=== PATIENT | male | born 1965 | race Caucasian/White ===

== ENCOUNTER 2019-12-03 09:46 | Emergency (ER) | payer MEDICARE, MEDICAID ==
[~2019-12-03] VITALS: Ht 177.8 cm; Wt 70.5 kg
[~2019-12-03 09:46] MED LIST: CLIN-97 PO; CYCL-1 PO; DICL100G15 TOP; HYDR-4383 PO; NAPR-232 PO
[2019-12-03] MEDS ORDERED: TETanus/Pertussis (Acell)/Diphther VAC/PF (Tdap-Adult) 0.5ml syringe IMVAC ONE (10:35)
[2019-12-03] MEDS ORDERED: DOXY100C43 PO (10:38)
[2019-12-03 10:48] VITALS: BP 133/90
== END 2019-12-03 10:49 | disposition home or self-care (01) ==
LOC: ER 09:47
DX: L03.113 Cellulitis of right upper limb (principal); W54.0XXD Bitten by dog, subsequent encounter; M19.90 Unspecified osteoarthritis, unspecified site; G89.29 Other chronic pain; F17.210 Nicotine dependence, cigarettes, uncomplicated; Z88.0 Allergy status to penicillin; Z79.899 Other long term (current) drug therapy
CPT/HCPCS: 90471; 90715; 99283

== ENCOUNTER 2020-09-07 16:49 | Emergency (ER) | payer MEDICARE, MEDICAID ==
[~2020-09-07] VITALS: Ht 177.8 cm; Wt 72.7 kg
[2020-09-07 16:55] VITALS: BP 163/96
[2020-09-07] MEDS ORDERED: DOXY100C76 PO (17:02)
== END 2020-09-07 17:07 | disposition home or self-care (01) ==
LOC: ER 16:49
DX: L98.8 Other specified disorders of the skin and subcutaneous tissue (principal); G89.29 Other chronic pain; M19.90 Unspecified osteoarthritis, unspecified site; Z88.0 Allergy status to penicillin; Z79.899 Other long term (current) drug therapy
CPT/HCPCS: 99283